=== PATIENT | female | born 1990 | race African-American/Black ===

== ENCOUNTER 2016-06-30 10:02 | Emergency (ER) | payer SELFPAY ==
[~2016-06-30] VITALS: Ht 162.6 cm; Wt 75.0 kg
[2016-06-30 10:08] VITALS: BP 140/100
== END 2016-06-30 11:18 | disposition home or self-care (01) ==
LOC: ED 11:12
DX: B34.9 Viral infection, unspecified (principal)
CPT/HCPCS: 99283

== ENCOUNTER 2019-05-25 16:23 | Emergency (ER) | payer MEDICAID ==
[~2019-05-25] VITALS: Ht 162.6 cm; Wt 74.0 kg
[2019-05-25 16:27] VITALS: BP 124/67
[2019-05-25] MEDS ORDERED: HYDROcodone/APAP 5/325 TABLET PO ONE (17:00)
[2019-05-25] MEDS ORDERED: NEOSPORIN OINT. PKT 1 PACKET ONE (17:03)
--- NOTE | 2019-05-25 17:04 | NUR ---
SWELLING RIGHT OUTER ANKLE. DECLINES ICE SAYING IT HURT WHEN SHE TRIED TO USE IT AT HOME. PT FELL EARLIER TODAY
[2019-05-25] MEDS ORDERED: HYDROcodone/APAP 5/325 TABLET ONE (17:20)
== END 2019-05-25 18:45 | disposition home or self-care (01) ==
LOC: ED 17:26
DX: S93.421A Sprain of deltoid ligament of right ankle, initial encounter (principal); X50.1XXA Overexertion from prolonged static or awkward postures, initial encounter; Y93.89 Activity, other specified; Y92.009 Unspecified place in unspecified non-institutional (private) residence as the place of occurrence of the external cause; Y99.8 Other external cause status
CPT/HCPCS: 99283

== ENCOUNTER 2019-09-04 12:45 | Emergency (ER) | payer MEDICAID ==
[~2019-09-04] VITALS: Ht 177.8 cm; Wt 77.2 kg
[2019-09-04 12:53] VITALS: BP 123/72
--- NOTE | 2019-09-04 13:06 | NUR ---
FIRST CONTACT WITH PT. PT SITTING UP IN [facility], NAD NOTED. PT REPORTS FREQUENT DRY COUGH AND SORE THROAT. SUBJECTIVE FEVER/CHILLS TWO DAYS AGO. DENIES CP/SOB/EAR PAIN. TONSILS ERYTHEMATOUS, UVULA MIDLINE. MMM. SPO2 >90% ON RA. RR WNL. AIRWAY PATENT, SPEECH CLEAR. BP/SPO2 MONTIORING IN PLACE. AWAITING ERP EVAL. REPORT TO SOTO JENKINS
--- NOTE | 2019-09-04 13:12 | NUR ---
REPORT RECEIVED FROM SOTO LUGO. [facility].
== END 2019-09-04 14:57 | disposition home or self-care (01) ==
LOC: ED 13:22
DX: J06.9 Acute upper respiratory infection, unspecified (principal); J98.01 Acute bronchospasm; R50.9 Fever, unspecified; R05 Cough; M79.10 Myalgia, unspecified site; F17.210 Nicotine dependence, cigarettes, uncomplicated
CPT/HCPCS: 71045; 99283; 99406

== ENCOUNTER 2020-10-09 10:45 | Emergency (ER) | payer MEDICAID ==
[~2020-10-09] VITALS: Ht 162.6 cm; Wt 77.0 kg
[2020-10-09 11:15] LABS: MICROSCOPIC INDICATED
--- NOTE | 2020-10-09 12:54 | NUR ---
No answer when pt called for repeat VS from lobby.
--- NOTE | 2020-10-09 13:08 | NUR ---
No answer when pt called for repeat VS from lobby.
--- NOTE | 2020-10-09 13:15 | NUR ---
[employer]ER: PT TO ROOM FROM LOBBY
--- NOTE | 2020-10-09 13:27 | NUR ---
DR MARTINEZ AT BEDSIDE TO STELLA PT
--- NOTE | 2020-10-09 14:37 | NUR ---
PT WITH C/O "BEING COLD" TEMP 98.8, PT PROVIDED WITH IRENE PAWS WARMER. PT AWARE OF CONT WAITING FOR BETA RESULTS. NO OTHER NEEDS EXPRESSED AT THIS TIME.
[2020-10-09 14:44] LABS: HCG UR SG 1.013 (1.003-1.030)
--- NOTE | 2020-10-09 15:16 | NUR ---
DR MARTINEZ AT BEDSIDE TO RE-EVAL PT
[2020-10-09 15:28] VITALS: BP 110/80
--- NOTE | 2020-10-09 15:28 | NUR ---
PT DRESSED, NO IV TO DC. REVIEWED DC INSTRUCTIONS WITH PT. UNDERSTANDING VERBALIZED. PT LEFT AMB GAIT STEADY WITH FAMILY.
== END 2020-10-09 16:11 | disposition home or self-care (01) ==
LOC: ED 16:08
DX: N30.01 Acute cystitis with hematuria (principal); F17.200 Nicotine dependence, unspecified, uncomplicated
CPT/HCPCS: 81001; 81025; 87086; 99283